=== PATIENT | female | born 1975 | race Asian ===

== ENCOUNTER → 2017-02-19 | Outpatient (CLI) | payer OTHER ==
[2017-02-18 09:29] LABS: BASOPHIL % 1.4 % (0-2)
[2017-02-18 09:53] LABS: ALBUMIN 3.8 g/dL (3.4-5.0); ALKALINE PHOSPHATASE 89 U/L (46-116); ALT/SGPT 43 U/L (14-59); AST/SGOT 24 U/L (15-37); BILIRUBIN TOTAL 0.4 mg/dL (0.20-1.00); CARBON DIOXIDE 29.9 mmol/L (21-32); CHLORIDE SERUM 102 mmol/L (98-107); CREATININE SERUM 0.8 mg/dL (0.6-1.0); GFR1 > 60 mL/min; GLUCOSE SERUM 103 mg/dL (74-106); POTASSIUM SERUM 3.9 mmol/L (3.5-5.1); SODIUM SERUM 138 mmol/L (136-145); TOTAL PROTEIN, SERUM 7.9 g/dL (6.4-8.2)
[2017-02-18 10:03] LABS: PLATELET COUNT 401 x10^3mcL (130-400)
== END | disposition home or self-care (01) ==
LOC: US 08:40
PROVIDERS: Obstetrics & Gynecology
PROC: BW4GZZZ Ultrasonography of Pelvic Region (ICD-10-PCS; principal; 2017-02-19)
DX: D25.9 Leiomyoma of uterus, unspecified (principal)
CPT/HCPCS: 86480